=== PATIENT | female | born 1995 | race Caucasian/White ===

== ENCOUNTER 2020-05-05 21:40 | Inpatient (IN) | payer MEDICAID, OTHER ==
[~2020-05-05] VITALS: Ht 167.6 cm; Wt 88.5 kg
[2020-05-05] MEDS ORDERED: TRAZ-257 PO (21:55)
[2020-05-05] MEDS ORDERED: RISP2TAB45 PO (21:55)
[2020-05-05 22:47] LABS: AMPHET/METH SCREEN,URINE POSITIVE (NEGATIVE); BARBITURATE SCREEN, URINE NEGATIVE (NEGATIVE); BENZODIAZEPINES SCREEN,URINE NEGATIVE (NEGATIVE); CANNABINOID SCREEN,URINE NEGATIVE (NEGATIVE); COCAINE SCREEN,URINE NEGATIVE (NEGATIVE); METHADONE SCREEN, URINE NEGATIVE (NEGATIVE); OPIATE SCREEN,URINE NEGATIVE (NEGATIVE)
[2020-05-05 22:48] LABS: PHENCYCLIDINE SCREEN,URINE NEGATIVE (NEGATIVE)
[2020-05-05 23:38] LABS: COVID AG,FIA SOURCE NASOPHARYNGEAL
[2020-05-06] MEDS ORDERED: LORazepam 2 MG TABLET PO PRN (01:00)
[2020-05-06] MEDS ORDERED: ZOLPIDEM TARTRATE 10 MG TABLET PO PRN (01:00)
[2020-05-06] MEDS ORDERED: HALOPERIDOL 5 MG TABLET PO PRN (01:00)
[2020-05-06 03:25] LABS: APPEARANCE,URINE CLOUDY (CLEAR); BILIRUBIN,URINE NEGATIVE (NEGATIVE); GLUCOSE, URINE (UA) NEGATIVE (NEGATIVE); KETONES,URINE NEGATIVE (NEGATIVE); LEUKOCYTE ESTERASE ,URINE SMALL (NEGATIVE); NITRATE,URINE POSITIVE (NEGATIVE); OCCULT BLOOD,URINE NEGATIVE (NEGATIVE); PROTEIN,URINE NEGATIVE (NEGATIVE); UROBILINOGEN,URINE 0.2 mg/dL (<=1.0)
[2020-05-06 03:32] LABS: BACTERIA,URINE Moderate /HPF (None Seen); CALCIUM OXALATE CRYSTALS,UR Moderate /LPF (None Seen); RBC,URINE 0-2 /HPF (0-2); SQUAMOUS EPITHELIAL CELL,UR Few /LPF (None Seen)
[2020-05-06 13:34] VITALS: BP 116/72
[2020-05-06] MEDS ORDERED: INFLUENZA VIRUS VACCINE QVS 2020-21 (6MO+)/PF 60 MCG/0.5 ML SYRINGE IM ONE (14:00)
[2020-05-06] MEDS ORDERED: MAGNESIUM HYDROXIDE SUSPENSION 30 ML UDCUP PO PRN (14:45)
[2020-05-06] MEDS ORDERED: LOPERAMIDE HCL 2 MG CAPSULE PO PRN (14:45)
[2020-05-06] MEDS ORDERED: PROMETHAZINE HCL 25 MG TABLET PO PRN (14:45)
[2020-05-06] MEDS ORDERED: HydrOXYzine PAMOATE 50 MG CAPSULE PO PRN (14:45)
[2020-05-06] MEDS ORDERED: OLANZapine 5 MG RAPDIS TABLET PO PRN (14:45)
[2020-05-06] MEDS ORDERED: GuaiFENesin/D-METHORPHAN [SUGAR-FREE] 200-20MG/10 ML SYRUP UDCUP PO PRN (14:45)
[2020-05-06] MEDS ORDERED: MAG HYDROX/AL HYDROX/SIMETH ES 30 ML SUSPENSION UDCUP PO PRN (14:45)
[2020-05-06] MEDS ORDERED: TUBERCULIN, PURIFIED PROTEIN DERIVATIVE 5 TU/0.1 ML SYRINGE ID ONE (14:45)
[2020-05-06] MEDS ORDERED: ACETAMINOPHEN 325 MG TABLET PO PRN (14:45)
[2020-05-06] MEDS: BACITRACIN 28 GM OINTMENT TP SCH (16:34)
[2020-05-06] MEDS: THIAMINE 100 MG TABLET PO SCH (16:34)
[2020-05-06] MEDS ORDERED: OLANZapine 5 MG RAPDIS TABLET PO SCH (21:00)
[2020-05-06 22:50] VITALS: BP 129/81
[2020-05-07 00:03] VITALS: BP 127/78
[2020-05-07] MEDS: FOLIC ACID 1 MG TABLET PO SCH (08:17)
[2020-05-07] MEDS: THIAMINE 100 MG TABLET PO SCH ×2 (08:17→16:13)
[2020-05-07] MEDS: FLUoxetine HCL 20 MG CAPSULE PO SCH (08:17)
[2020-05-07] MEDS: MULTIVITAMINS WITH MINERALS, THERAPEUTIC TABLET PO SCH (08:17)
[2020-05-07] MEDS: NALTREXONE HCL 50 MG TABLET PO SCH (08:17)
[2020-05-07] MEDS: OMEGA-3/DHA/EPA/FISH OIL 1,000 MG CAPSULE PO SCH (08:17)
[2020-05-07] MEDS: BACITRACIN 28 GM OINTMENT TP SCH ×2 (08:18→16:14)
[2020-05-07 08:19] VITALS: BP 129/67
[2020-05-07 16:02] VITALS: BP 130/70
[2020-05-07] MEDS: CEPHALEXIN MONOHYDRATE 500 MG CAPSULE PO SCH (17:48)
[2020-05-07] MEDS: TraZODone HCL 50 MG TABLET PO SCH (20:08)
[2020-05-07] MEDS: OLANZapine 10 MG RAPDIS TABLET PO SCH (20:08)
[2020-05-08 00:03] VITALS: BP 142/75
[2020-05-08 08:18] VITALS: BP 126/76
[2020-05-08] MEDS: FOLIC ACID 1 MG TABLET PO SCH (08:37)
[2020-05-08] MEDS: FLUoxetine HCL 20 MG CAPSULE PO SCH (08:37)
[2020-05-08] MEDS: CEPHALEXIN MONOHYDRATE 500 MG CAPSULE PO SCH ×3 (08:37→16:26)
[2020-05-08] MEDS: NALTREXONE HCL 50 MG TABLET PO SCH (08:37)
[2020-05-08] MEDS: MULTIVITAMINS WITH MINERALS, THERAPEUTIC TABLET PO SCH (08:37)
[2020-05-08] MEDS: THIAMINE 100 MG TABLET PO SCH ×2 (08:37→16:26)
[2020-05-08] MEDS: OMEGA-3/DHA/EPA/FISH OIL 1,000 MG CAPSULE PO SCH (08:37)
[2020-05-08] MEDS: BACITRACIN 28 GM OINTMENT TP SCH ×2 (08:38→16:27)
[2020-05-08] MEDS ORDERED: CEPHALEXIN MONOHYDRATE 500 MG CAPSULE PO SCH (09:00)
[2020-05-08 17:22] VITALS: BP 121/77
[2020-05-08] MEDS: TraZODone HCL 50 MG TABLET PO SCH (20:29)
[2020-05-08] MEDS: OLANZapine 10 MG RAPDIS TABLET PO SCH (20:30)
[2020-05-08] MEDS ORDERED: PRAZOSIN HCL 1 MG CAPSULE PO SCH (21:00)
[2020-05-09 00:50] VITALS: BP 130/62
[2020-05-09 08:05] VITALS: BP 102/60
[2020-05-09] MEDS: FOLIC ACID 1 MG TABLET PO SCH (09:08)
[2020-05-09] MEDS: CEPHALEXIN MONOHYDRATE 500 MG CAPSULE PO SCH ×3 (09:08→16:36)
[2020-05-09] MEDS: OMEGA-3/DHA/EPA/FISH OIL 1,000 MG CAPSULE PO SCH (09:08)
[2020-05-09] MEDS: MULTIVITAMINS WITH MINERALS, THERAPEUTIC TABLET PO SCH (09:09)
[2020-05-09] MEDS: THIAMINE 100 MG TABLET PO SCH ×2 (09:09→16:36)
[2020-05-09] MEDS: NALTREXONE HCL 50 MG TABLET PO SCH (09:09)
[2020-05-09] MEDS: FLUoxetine HCL 20 MG CAPSULE PO SCH (09:09)
[2020-05-09] MEDS: BACITRACIN 28 GM OINTMENT TP SCH ×2 (09:16→16:37)
[2020-05-09 16:14] VITALS: BP 120/70
[2020-05-09] MEDS: PRAZOSIN HCL 2 MG CAPSULE PO SCH (20:32)
[2020-05-09] MEDS: TraZODone HCL 100 MG TABLET PO SCH (20:32)
[2020-05-09] MEDS: OLANZapine 10 MG RAPDIS TABLET PO SCH (20:33)
[2020-05-10 00:53] VITALS: BP 125/76
[2020-05-10 01:52] VITALS: BP 136/65
[2020-05-10] MEDS: ZOLPIDEM TARTRATE 10 MG TABLET PO PRN (01:59)
[2020-05-10 08:01] VITALS: BP 124/71
[2020-05-10] MEDS: MULTIVITAMINS WITH MINERALS, THERAPEUTIC TABLET PO SCH (08:12)
[2020-05-10] MEDS: CEPHALEXIN MONOHYDRATE 500 MG CAPSULE PO SCH ×3 (08:12→16:40)
[2020-05-10] MEDS: NALTREXONE HCL 50 MG TABLET PO SCH (08:12)
[2020-05-10] MEDS: THIAMINE 100 MG TABLET PO SCH ×2 (08:12→16:40)
[2020-05-10] MEDS: OMEGA-3/DHA/EPA/FISH OIL 1,000 MG CAPSULE PO SCH (08:12)
[2020-05-10] MEDS: FLUoxetine HCL 20 MG CAPSULE PO SCH (08:12)
[2020-05-10] MEDS: FOLIC ACID 1 MG TABLET PO SCH (08:12)
[2020-05-10] MEDS: BACITRACIN 28 GM OINTMENT TP SCH ×2 (08:13→16:40)
[2020-05-10 16:06] VITALS: BP 131/79
[2020-05-10 20:15] VITALS: BP 132/90
[2020-05-10] MEDS: PRAZOSIN HCL 2 MG CAPSULE PO SCH (20:19)
[2020-05-10] MEDS: OLANZapine 10 MG RAPDIS TABLET PO SCH (20:19)
[2020-05-10] MEDS: TraZODone HCL 100 MG TABLET PO SCH (20:19)
[2020-05-11 01:11] VITALS: BP 134/85
[2020-05-11] MEDS: ZOLPIDEM TARTRATE 10 MG TABLET PO PRN (01:12)
[2020-05-11 08:02] VITALS: BP 105/67
[2020-05-11] MEDS: THIAMINE 100 MG TABLET PO SCH ×2 (08:06→16:04)
[2020-05-11] MEDS: NALTREXONE HCL 50 MG TABLET PO SCH (08:06)
[2020-05-11] MEDS: MULTIVITAMINS WITH MINERALS, THERAPEUTIC TABLET PO SCH (08:06)
[2020-05-11] MEDS: OMEGA-3/DHA/EPA/FISH OIL 1,000 MG CAPSULE PO SCH (08:06)
[2020-05-11] MEDS: FOLIC ACID 1 MG TABLET PO SCH (08:06)
[2020-05-11] MEDS: FLUoxetine HCL 20 MG CAPSULE PO SCH (08:06)
[2020-05-11] MEDS: CEPHALEXIN MONOHYDRATE 500 MG CAPSULE PO SCH ×3 (08:06→16:04)
[2020-05-11] MEDS: BACITRACIN 28 GM OINTMENT TP SCH ×2 (08:06→16:04)
[2020-05-11 16:06] VITALS: BP 125/77
[2020-05-11] MEDS: PRAZOSIN HCL 2 MG CAPSULE PO SCH (20:28)
[2020-05-11] MEDS: TraZODone HCL 100 MG TABLET PO SCH (20:28)
[2020-05-11] MEDS: OLANZapine 10 MG RAPDIS TABLET PO SCH (20:29)
[2020-05-12 01:26] VITALS: BP 134/84
[2020-05-12] MEDS: BACITRACIN 28 GM OINTMENT TP SCH ×2 (08:05→16:12)
[2020-05-12] MEDS: FOLIC ACID 1 MG TABLET PO SCH (08:05)
[2020-05-12] MEDS: FLUoxetine HCL 20 MG CAPSULE PO SCH (08:05)
[2020-05-12] MEDS: CEPHALEXIN MONOHYDRATE 500 MG CAPSULE PO SCH ×3 (08:06→16:12)
[2020-05-12] MEDS: THIAMINE 100 MG TABLET PO SCH ×2 (08:06→16:12)
[2020-05-12] MEDS: NALTREXONE HCL 50 MG TABLET PO SCH (08:06)
[2020-05-12] MEDS: OMEGA-3/DHA/EPA/FISH OIL 1,000 MG CAPSULE PO SCH (08:06)
[2020-05-12] MEDS: MULTIVITAMINS WITH MINERALS, THERAPEUTIC TABLET PO SCH (08:06)
[2020-05-12 08:47] VITALS: BP 128/72
[2020-05-12 16:13] VITALS: BP 118/73
[2020-05-12 20:25] VITALS: BP 117/77
[2020-05-12] MEDS: PRAZOSIN HCL 2 MG CAPSULE PO SCH (20:25)
[2020-05-12] MEDS: TraZODone HCL 100 MG TABLET PO SCH (20:25)
[2020-05-12] MEDS: OLANZapine 10 MG RAPDIS TABLET PO SCH (20:25)
[2020-05-13] MEDS: LORazepam 2 MG TABLET PO PRN (00:07)
[2020-05-13 00:08] VITALS: BP 145/84
[2020-05-13] MEDS: ZOLPIDEM TARTRATE 10 MG TABLET PO PRN (01:28)
[2020-05-13 08:21] VITALS: BP 112/76
[2020-05-13] MEDS: THIAMINE 100 MG TABLET PO SCH ×2 (08:57→17:09)
[2020-05-13] MEDS: NALTREXONE HCL 50 MG TABLET PO SCH (08:57)
[2020-05-13] MEDS: OMEGA-3/DHA/EPA/FISH OIL 1,000 MG CAPSULE PO SCH (08:57)
[2020-05-13] MEDS: CEPHALEXIN MONOHYDRATE 500 MG CAPSULE PO SCH ×3 (08:57→17:09)
[2020-05-13] MEDS: MULTIVITAMINS WITH MINERALS, THERAPEUTIC TABLET PO SCH (08:57)
[2020-05-13] MEDS: FLUoxetine HCL 20 MG CAPSULE PO SCH (08:57)
[2020-05-13] MEDS: FOLIC ACID 1 MG TABLET PO SCH (08:58)
[2020-05-13] MEDS: BACITRACIN 28 GM OINTMENT TP SCH ×2 (09:28→17:09)
[2020-05-13 16:31] VITALS: BP 132/93
[2020-05-13 19:15] LABS: COVID AG,FIA SOURCE NASAL SWAB
[2020-05-13] MEDS: PRAZOSIN HCL 2 MG CAPSULE PO SCH (20:56)
[2020-05-13] MEDS: TraZODone HCL 100 MG TABLET PO SCH (20:56)
[2020-05-13] MEDS: OLANZapine 10 MG RAPDIS TABLET PO SCH (20:57)
[2020-05-14 00:41] VITALS: BP 122/88
[2020-05-14 08:13] VITALS: BP 131/74
[2020-05-14] MEDS: CEPHALEXIN MONOHYDRATE 500 MG CAPSULE PO SCH ×3 (08:37→15:58)
[2020-05-14] MEDS: NALTREXONE HCL 50 MG TABLET PO SCH (08:38)
[2020-05-14] MEDS: FLUoxetine HCL 20 MG CAPSULE PO SCH (08:38)
[2020-05-14] MEDS: THIAMINE 100 MG TABLET PO SCH ×2 (08:38→15:58)
[2020-05-14] MEDS: OMEGA-3/DHA/EPA/FISH OIL 1,000 MG CAPSULE PO SCH (08:39)
[2020-05-14] MEDS: FOLIC ACID 1 MG TABLET PO SCH (08:39)
[2020-05-14] MEDS: BACITRACIN 28 GM OINTMENT TP SCH ×2 (08:40→16:04)
[2020-05-14] MEDS: MULTIVITAMINS WITH MINERALS, THERAPEUTIC TABLET PO SCH (08:40)
[2020-05-14] MEDS ORDERED: LURASIDONE HCL 40 MG TABLET PO PRN (16:00)
[2020-05-14 16:30] VITALS: BP 112/77
[2020-05-14] MEDS: LORazepam 2 MG TABLET PO PRN (17:21)
[2020-05-14] MEDS: TraZODone HCL 100 MG TABLET PO SCH (20:11)
[2020-05-14] MEDS: PRAZOSIN HCL 2 MG CAPSULE PO SCH (20:11)
[2020-05-14] MEDS ORDERED: LURASIDONE HCL 40 MG TABLET PO SCH (21:00)
[2020-05-15 02:41] VITALS: BP 120/74
[2020-05-15 08:13] VITALS: BP 120/66
[2020-05-15] MEDS: CEPHALEXIN MONOHYDRATE 500 MG CAPSULE PO SCH ×3 (08:15→16:58)
[2020-05-15] MEDS: BACITRACIN 28 GM OINTMENT TP SCH ×2 (08:16→16:58)
[2020-05-15] MEDS: NALTREXONE HCL 50 MG TABLET PO SCH (08:16)
[2020-05-15] MEDS: MULTIVITAMINS WITH MINERALS, THERAPEUTIC TABLET PO SCH (08:16)
[2020-05-15] MEDS: FOLIC ACID 1 MG TABLET PO SCH (08:16)
[2020-05-15] MEDS: FLUoxetine HCL 20 MG CAPSULE PO SCH (08:16)
[2020-05-15] MEDS: THIAMINE 100 MG TABLET PO SCH ×2 (08:16→16:58)
[2020-05-15] MEDS: OMEGA-3/DHA/EPA/FISH OIL 1,000 MG CAPSULE PO SCH (08:16)
[2020-05-15] MEDS ORDERED: NALT50TA PO (15:04)
[2020-05-15] MEDS ORDERED: PRAZ2 PO (15:04)
[2020-05-15] MEDS ORDERED: OMEG-135 PO (15:04)
[2020-05-15] MEDS ORDERED: LURA40TA2 PO (15:04)
[2020-05-15] MEDS ORDERED: FLUO-191 PO (15:04)
[2020-05-15 16:05] VITALS: BP 137/75
[2020-05-15] MEDS: LORazepam 2 MG TABLET PO PRN (19:08)
[2020-05-15] MEDS: TraZODone HCL 100 MG TABLET PO SCH (20:42)
[2020-05-15] MEDS: PRAZOSIN HCL 2 MG CAPSULE PO SCH (20:42)
[2020-05-15] MEDS: ZOLPIDEM TARTRATE 10 MG TABLET PO PRN (20:43)
[2020-05-15] MEDS ORDERED: LURASIDONE HCL 60 MG TABLET PO SCH (21:00)
[2020-05-16 06:33] VITALS: BP 126/72
[2020-05-16] MEDS: MULTIVITAMINS WITH MINERALS, THERAPEUTIC TABLET PO SCH (08:07)
[2020-05-16] MEDS: CEPHALEXIN MONOHYDRATE 500 MG CAPSULE PO SCH (08:07)
[2020-05-16] MEDS: THIAMINE 100 MG TABLET PO SCH (08:07)
[2020-05-16] MEDS: FLUoxetine HCL 20 MG CAPSULE PO SCH (08:07)
[2020-05-16] MEDS: FOLIC ACID 1 MG TABLET PO SCH (08:07)
[2020-05-16] MEDS: NALTREXONE HCL 50 MG TABLET PO SCH (08:07)
[2020-05-16] MEDS: OMEGA-3/DHA/EPA/FISH OIL 1,000 MG CAPSULE PO SCH (08:07)
[2020-05-16 08:13] VITALS: BP 116/71
[2020-05-16] MEDS: BACITRACIN 28 GM OINTMENT TP SCH (09:23)
== END 2020-05-16 11:00 | disposition home or self-care (01) | DRG 750 ==
LOC: EMS 21:42 → B2S 05-06 10:55 → UNDOADMIN 05-06 12:45 → B3A 05-13 15:41
PROVIDERS: ADMIT Psychiatry & Neurology Psychiatry; ATTEND Psychiatry & Neurology Psychiatry
DX: F25.9 Schizoaffective disorder, unspecified (principal); F31.9 Bipolar disorder, unspecified; F60.3 Borderline personality disorder; G47.00 Insomnia, unspecified; N39.0 Urinary tract infection, site not specified; R45.851 Suicidal ideations; F17.210 Nicotine dependence, cigarettes, uncomplicated; R41.843 Psychomotor deficit; Z20.828 Contact with and (suspected) exposure to other viral communicable diseases; F15.10 Other stimulant abuse, uncomplicated; Z55.9 Problems related to education and literacy, unspecified; Z59.9 Problem related to housing and economic circumstances, unspecified; Z65.3 Problems related to other legal circumstances; Z88.2 Allergy status to sulfonamides; Z79.899 Other long term (current) drug therapy; Z28.21 Immunization not carried out because of patient refusal; T14.8XXA Other injury of unspecified body region, initial encounter
CPT/HCPCS: 87086; 87426; 90686

== ENCOUNTER 2021-03-26 20:20 | Emergency (ER) | payer MEDICAID ==
[~2021-03-26] VITALS: Ht 165.1 cm; Wt 81.8 kg
[~2021-03-26 20:20] MED LIST: FLUO-191 PO; LURA40TA2 PO; NALT50TA PO; OMEG-135 PO; PRAZ2 PO
[2021-03-26 20:28] VITALS: BP 151/79
== END 2021-03-26 21:23 | disposition left against medical advice (07) ==
LOC: EMS 20:22
DX: K08.89 Other specified disorders of teeth and supporting structures (principal); Z53.21 Procedure and treatment not carried out due to patient leaving prior to being seen by health care provider

== ENCOUNTER 2021-07-15 21:21 | Emergency (ER) | payer MEDICAID ==
[~2021-07-15] VITALS: Ht 167.6 cm; Wt 90.9 kg
[2021-07-15 22:14] LABS: BASOPHILS % (AUTO) 0.6 % (0.0-2.0); EOSINOPHILS % (AUTO) 3.3 % (1.0-6.0); HEMOGLOBIN 13.2 g/dL (12.0-16.0); LYMPHOCYTES # (AUTO) 1.9 K/uL (1.0-4.8); LYMPHOCYTES % (AUTO) 22.9 % (22.0-44.0); MEAN CORPUSCULAR HEMOGLOBIN 25.7 pg (26.0-34.0); MEAN CORPUSCULAR VOLUME 78 fL (80-100); MONOCYTES # (AUTO) 0.5 K/uL (0.1-1.0); MONOCYTES % (AUTO) 6.1 % (2.0-9.0); NEUTROPHILS # (AUTO) 5.4 K/uL (1.8-7.7); NEUTROPHILS % (AUTO) 67.1 % (40.0-70.0); PLATELET COUNT (AUTO) 251 K/uL (150-450); RED BLOOD CELL COUNT(AUTO) 5.14 MIL/uL (4.00-5.20); RED CELL DISTRIBUTION WIDTH 14.4 % (11.5-14.5)
[2021-07-15 22:37] VITALS: BP 126/74
[2021-07-15 22:37] LABS: ANION GAP 7 mmol/L (8-16); CALCIUM, TOTAL 9.1 mg/dL (8.8-10.5); CARBON DIOXIDE 26 mmol/L (22-29); CHLORIDE 104 mmol/L (98-107); CREATININE 0.97 mg/dL (0.60-1.30); GLOMERULAR FILTR. RATE CALC > 60 mL/min (>60); GLUCOSE,RANDOM 99 mg/dL (70-110); POTASSIUM 4.1 mmol/L (3.5-5.1); SODIUM SERUM 137 mmol/L (136-145); UREA NITROGEN, BLOOD 11 mg/dL (7-18)
[2021-07-15 22:49] LABS: ALANINE AMINOTRANSFERASE 20 U/L (12-78); ALBUMIN 3.6 g/dL (3.4-5.0); ALKALINE PHOSPHATASE 89 U/L (46-116); ASPARTATE AMINOTRANSFERASE 13 U/L (15-37); BILIRUBIN,TOTAL 0.2 mg/dL (0.1-1.0); HCG,QUANTITATIVE < 1 mIU/mL (0-6); TOTAL PROTEIN, SERUM 7.4 g/dL (6.4-8.2)
[2021-07-15 23:16] LABS: COVID AG,FIA SOURCE NASOPHARYNGEAL
[2021-07-15] MEDS ORDERED: OLANZapine 5 MG TABLET PO ONE (23:45)
== END 2021-07-16 00:40 | disposition home or self-care (01) ==
LOC: EMS 21:26
DX: F20.9 Schizophrenia, unspecified (principal); F15.10 Other stimulant abuse, uncomplicated; F31.9 Bipolar disorder, unspecified; F17.210 Nicotine dependence, cigarettes, uncomplicated; Z88.2 Allergy status to sulfonamides; Z79.899 Other long term (current) drug therapy; Z20.822 Contact with and (suspected) exposure to COVID-19
CPT/HCPCS: 80053; 84702; 85025; 87426; 99284; G0480

== ENCOUNTER 2021-08-02 12:34 | Emergency (ER) | payer MEDICAID ==
[~2021-08-02] VITALS: Ht 160 cm; Wt 86.4 kg
[2021-08-02] MEDS ORDERED: HALOPERIDOL 5 MG TABLET PO ONE (13:15)
[2021-08-02 13:29] LABS: BASOPHILS % (AUTO) 0.6 % (0.0-2.0); EOSINOPHILS % (AUTO) 1.7 % (1.0-6.0); HEMATOCRIT 36.9 % (36-46); HEMOGLOBIN 12.1 g/dL (12.0-16.0); LYMPHOCYTES # (AUTO) 1.5 K/uL (1.0-4.8); LYMPHOCYTES % (AUTO) 20.6 % (22.0-44.0); MEAN CORPUSCULAR HEMOGLOBIN 25.1 pg (26.0-34.0); MEAN CORPUSCULAR HGB CONC 32.6 G/dL (31.0-37.0); MEAN CORPUSCULAR VOLUME 77 fL (80-100); MONOCYTES # (AUTO) 0.6 K/uL (0.1-1.0); MONOCYTES % (AUTO) 8.2 % (2.0-9.0); NEUTROPHILS % (AUTO) 68.9 % (40.0-70.0); PLATELET COUNT (AUTO) 237 K/uL (150-450); RED BLOOD CELL COUNT(AUTO) 4.79 MIL/uL (4.00-5.20); RED CELL DISTRIBUTION WIDTH 15.2 % (11.5-14.5)
[2021-08-02 13:39] LABS: ANION GAP 8 mmol/L (8-16); CALCIUM, TOTAL 9.1 mg/dL (8.8-10.5); CARBON DIOXIDE 27 mmol/L (22-29); CHLORIDE 103 mmol/L (98-107); CREATININE 0.79 mg/dL (0.60-1.30); GLOMERULAR FILTR. RATE CALC > 60 mL/min (>60); GLUCOSE,RANDOM 98 mg/dL (70-110); POTASSIUM 3.7 mmol/L (3.5-5.1); SODIUM SERUM 138 mmol/L (136-145); UREA NITROGEN, BLOOD 11 mg/dL (7-18)
[2021-08-02 13:50] LABS: ALANINE AMINOTRANSFERASE 22 U/L (12-78); ALBUMIN 3.5 g/dL (3.4-5.0); ALKALINE PHOSPHATASE 84 U/L (46-116); ASPARTATE AMINOTRANSFERASE 19 U/L (15-37); BILIRUBIN,TOTAL 0.3 mg/dL (0.1-1.0); HCG,QUANTITATIVE 1 mIU/mL (0-6); TOTAL PROTEIN, SERUM 7.3 g/dL (6.4-8.2)
[2021-08-02 14:32] LABS: AMPHET/METH SCREEN,URINE POSITIVE (NEGATIVE); BARBITURATE SCREEN, URINE NEGATIVE (NEGATIVE); BENZODIAZEPINES SCREEN,URINE NEGATIVE (NEGATIVE); CANNABINOID SCREEN,URINE NEGATIVE (NEGATIVE); COCAINE SCREEN,URINE NEGATIVE (NEGATIVE); METHADONE SCREEN, URINE NEGATIVE (NEGATIVE); OPIATE SCREEN,URINE NEGATIVE (NEGATIVE); PHENCYCLIDINE SCREEN,URINE NEGATIVE (NEGATIVE)
[2021-08-02 15:11] VITALS: BP 152/81
== END 2021-08-02 15:29 | disposition home or self-care (01) ==
LOC: EMS 12:36
DX: F15.10 Other stimulant abuse, uncomplicated (principal); R44.3 Hallucinations, unspecified; F17.210 Nicotine dependence, cigarettes, uncomplicated; F31.9 Bipolar disorder, unspecified; Z88.2 Allergy status to sulfonamides; Z79.899 Other long term (current) drug therapy
CPT/HCPCS: 36415; 80053; 80307; 84702; 85025; 99283; G0480